=== PATIENT | female | born 1960 | race Caucasian/White ===

== ENCOUNTER 2022-06-09 07:35 | Day surgery (SDC) | payer BC ==
[~2022-06-09] VITALS: Ht 170.2 cm; Wt 56.1 kg
[2022-06-09] MEDS ORDERED: LIDOcaine 1% 30ml preserv. free vial SQ STA (07:43)
[2022-06-09 07:45] VITALS: BP 137/95
[2022-06-09] MEDS ORDERED: albumin 25% 100mL bottle x 1 IV PRN (07:55)
[2022-06-09] MEDS ORDERED: IBUP-2697 PO (07:59)
[2022-06-09 08:45] VITALS: BP 137/91
[2022-06-09 09:00] VITALS: BP 142/89
[2022-06-09 09:15] VITALS: BP 127/87
[2022-06-09 09:30] VITALS: BP 137/90
[2022-06-09 09:45] VITALS: BP 133/82
[2022-06-09 10:47] LABS: GLUCOSE,BODY FLUID 101 MG/DL; LDH,BODY FLUID 361 U/L; TOTAL PROTEIN,BODY FLUID 5.6 G/DL
[2022-06-09 11:32] LABS: BFAPPEAR BLOODY
[2022-06-09 11:33] LABS: BF RBC COUNT 53500 /CU MM; BF WBC COUNT 5400 /CU MM (0-1000); BFCOLOR RED; BFVOLUME 50 ML; LYMPHOCYTES,BODY FLUID 10 %; MONOCYTES,BODY FLUID 8 %; NEUTROPHILS,BODY FLUID 82 %
== END 2022-06-09 09:55 | disposition home or self-care (01) ==
LOC: SSTAY O 07:35
PROVIDERS: ATTEND Radiology Vascular & Interventional Radiology
DX: R18.8 Other ascites (principal); I10 Essential (primary) hypertension; Z88.8 Allergy status to other drugs, medicaments and biological substances; Z80.0 Family history of malignant neoplasm of digestive organs; Z98.890 Other specified postprocedural states; Z79.899 Other long term (current) drug therapy
CPT/HCPCS: 49083; 82945; 83615; 84157; 87070; 89051; J3490; A6258; A6402

== ENCOUNTER 2022-07-11 08:00 | Day surgery (SDC) | payer BC ==
[~2022-07-11] VITALS: Ht 170.2 cm; Wt 54.1 kg
[~2022-07-11 08:00] MED LIST: IBUP-2697 PO
[2022-07-11 08:28] VITALS: BP 149/96
[2022-07-11] MEDS ORDERED: albumin 25% 100mL bottle x 1 IV PRN (08:30)
[2022-07-11] MEDS ORDERED: LIDOcaine 1%/PF 5ML 10 MG/ML VIAL IJ ONE (09:00)
[2022-07-11] MEDS ORDERED: LIDOcaine 1% 30ml preserv. free vial IJ STA (09:08)
== END 2022-07-11 09:40 | disposition home or self-care (01) ==
LOC: SSTAY O 08:00
PROVIDERS: ATTEND Radiology Diagnostic Radiology
DX: R18.8 Other ascites (principal); Z98.890 Other specified postprocedural states; Z79.899 Other long term (current) drug therapy; Z88.8 Allergy status to other drugs, medicaments and biological substances; Z90.710 Acquired absence of both cervix and uterus
CPT/HCPCS: 76705

== ENCOUNTER 2022-07-25 06:33 | Day surgery (SDC) | payer BC ==
[~2022-07-25] VITALS: Ht 170.2 cm; Wt 52.8 kg
[2022-07-25 06:49] VITALS: BP 129/88
[2022-07-25] MEDS ORDERED: albumin 25% 100mL bottle x 1 IV PRN (06:50)
[2022-07-25] MEDS ORDERED: ACET-1025 PO (07:27)
[2022-07-25] MEDS ORDERED: LIDOcaine 1% 30ml preserv. free vial SQ STA (08:12)
[2022-07-25 08:34] VITALS: BP 142/85
[2022-07-25 08:49] VITALS: BP 122/90
[2022-07-25 09:14] VITALS: BP 124/92
[2022-07-25 09:16] VITALS: BP 128/90
[2022-07-25 09:30] VITALS: BP 128/90
== END 2022-07-25 09:35 | disposition home or self-care (01) ==
LOC: SSTAY O 06:33
PROVIDERS: ATTEND Radiology Vascular & Interventional Radiology
DX: R18.8 Other ascites (principal); I10 Essential (primary) hypertension; Z90.710 Acquired absence of both cervix and uterus; Z98.890 Other specified postprocedural states; Z79.899 Other long term (current) drug therapy
CPT/HCPCS: 49083; C1729; A6258; A6449

== ENCOUNTER 2022-08-01 11:04 | Day surgery (SDC) | payer BC ==
[~2022-08-01] VITALS: Ht 170.2 cm; Wt 51.6 kg
[2022-08-01] VITALS (15 sets, daily range): BP systolic 102–141; BP diastolic 74–94
[~2022-08-01 11:04] MED LIST changes: +ACET-1025 PO
[2022-08-01] MEDS ORDERED: albumin 25% 100mL bottle x 1 IV PRN (11:35)
[2022-08-01] MEDS ORDERED: normal saline 1000ml 1,000 ML IV PRN (11:35)
[2022-08-01 12:43] LABS: BASOPHILS % (AUTO) 0.5 % (0-1); EOSINOPHILS % (AUTO) 0.2 % (0-6); HEMATOCRIT 36.5 % (35.0-45.0); HEMOGLOBIN 12.2 g/dl (12.0-16.0); LYMPHOCYTES # (AUTO) 0.8 X10'3 (1.1-4.8); LYMPHOCYTES % (AUTO) 10.1 % (21-51); MEAN CORPUSCULAR HEMOGLOBIN 29.6 PG (27.0-31.0); MEAN CORPUSCULAR HGB CONC 33.3 g/dL (33.0-36.5); MEAN PLATELET VOLUME 9.7 FL (7.4-10.4); MONOCYTES # (AUTO) 0.7 X10'3 (0-0.9); MONOCYTES % (AUTO) 9.1 % (2-12); NEUTROPHILS # (AUTO) 6.5 X10'3 (1.8-7.7); NEUTROPHILS % (AUTO) 80.1 % (42-75); PLATELET COUNT 253 X10'3 (140-440); WHITE BLOOD COUNT 8.2 X10'3 (4.5-11.0)
[2022-08-01] MEDS ORDERED: heparin sodium, porcine/PF 100unit/ml 5ML syringe ONE (12:55)
[2022-08-01] MEDS ORDERED: midazolam 1 mg/ML 2ml injection ONE ×3 (12:55→14:04)
[2022-08-01] MEDS ORDERED: fentaNYL/PF 50MCG/1 ML 2ML syringe ONE ×2 (12:55→14:04)
[2022-08-01] MEDS ORDERED: LIDOcaine 1% 30ml preserv. free vial ONE (12:56)
[2022-08-01] MEDS ORDERED: LIDOcaine 1% (10mg/ml) 2ml vial ONE ×2 (14:04→14:39)
[2022-08-01] MEDS ORDERED: normal saline 1000ml 1,000 ML IV SCH (15:50)
== END 2022-08-01 16:50 | disposition home or self-care (01) ==
LOC: SSTAY O 11:04
PROVIDERS: ATTEND Radiology Vascular & Interventional Radiology
DX: C78.7 Secondary malignant neoplasm of liver and intrahepatic bile duct (principal); C56.9 Malignant neoplasm of unspecified ovary; R18.0 Malignant ascites; Z88.8 Allergy status to other drugs, medicaments and biological substances; Z79.899 Other long term (current) drug therapy
CPT/HCPCS: 36415; 36561; 47000; 49083; 76937; 77001; 77012; 85025; 85610; 99152; 99153; C1769; C1788; C1894; J1642; J2250; J3010; J3490; J7030; A4615; A4620